=== PATIENT | female | born 1965 | race Two or more races ===

== ENCOUNTER 2022-06-15 09:00 | Inpatient (IN) | payer OTHER ==
[~2022-06-15] VITALS: Ht 157.5 cm; Wt 70.3 kg
[2022-06-15] MEDS ORDERED: PREVACID30 M1 PO (10:43)
[2022-06-15] MEDS ORDERED: CHILDREN'S ASPI81 MG PO (10:44)
[2022-06-15] MEDS ORDERED: MEGASE PO (10:44)
[2022-06-21] MEDS ORDERED: INTESTINEX680 M1 PO (08:22)
[2022-06-21] MEDS ORDERED: LEVSIN/SL0.125 MG SL (08:23)
== END 2022-06-21 10:16 | disposition home or self-care (01) | DRG 395 ==
LOC: O/R 06-20 07:42 → SURH 06-20 09:00
PROVIDERS: ADMIT Surgery; ATTEND Surgery
PROC: 0DJD8ZZ Inspection of Lower Intestinal Tract, Via Natural or Artificial Opening Endoscopic (ICD-10-PCS; 2022-06-20)
PROC: 3E0T3BZ Introduction of Anesthetic Agent into Peripheral Nerves and Plexi, Percutaneous Approach (ICD-10-PCS; 2022-06-20)
PROC: 0DBP8ZZ Excision of Rectum, Via Natural or Artificial Opening Endoscopic (ICD-10-PCS; principal; 2022-06-20 11:30)
DX: D12.8 Benign neoplasm of rectum (principal); Z20.822 Contact with and (suspected) exposure to COVID-19
CPT/HCPCS: 0184T; 45300; 64430

== ENCOUNTER 2022-09-18 12:00 | Inpatient (IN) | payer OTHER ==
[~2022-09-18] VITALS: Ht 157.5 cm; Wt 71.7 kg
[~2022-09-18 12:00] MED LIST: CHILDREN'S ASPI81 MG PO; INTESTINEX680 M1 PO; LEVSIN/SL0.125 MG SL; MEGASE PO; PREVACID30 M1 PO
[2022-09-25] MEDS ORDERED: MEGESTROL ACETA40 MG PO (11:15)
[2022-09-26] MEDS ORDERED: GABAPENTIN300 MG PO (08:10)
[2022-09-26] MEDS ORDERED: IBUPROFEN800 MG PO (08:11)
[2022-09-26] MEDS ORDERED: CIPRO500 MG PO (08:12)
[2022-09-26] MEDS ORDERED: LEVSIN/SL0.125 MG SL (08:13)
== END 2022-09-26 08:47 | disposition home or self-care (01) | DRG 743 ==
LOC: ADM 12:00 → O/R 09-24 07:32 → SURG 09-24 10:30 → EDSTATUS 09-24 12:00 → SURG 09-24 12:00 → CIR.AMB 09-24 12:00 → SURG 09-24 13:32
PROVIDERS: ADMIT Obstetrics & Gynecology Gynecology; ATTEND Obstetrics & Gynecology Gynecology
PROC: 0UT70ZZ Resection of Bilateral Fallopian Tubes, Open Approach (ICD-10-PCS; 2022-09-24)
PROC: 0UT90ZZ Resection of Uterus, Open Approach (ICD-10-PCS; principal; 2022-09-24 10:30)
DX: D25.1 Intramural leiomyoma of uterus (principal); D25.2 Subserosal leiomyoma of uterus; N72 Inflammatory disease of cervix uteri; N84.0 Polyp of corpus uteri; Z20.822 Contact with and (suspected) exposure to COVID-19; N80.01 Superficial endometriosis of the uterus